=== PATIENT | male | born 1955 | race Asian ===

== ENCOUNTER 2020-09-18 13:52 | Inpatient (IN) | payer OTHER ==
[~2020-09-18] VITALS: Ht 165.1 cm; Wt 79.5 kg
[2020-09-18 14:48] LABS: BASOPHILS % (AUTO) 0.3 % (0.0-2.0); EOSINOPHILS % (AUTO) 0.8 % (1.0-6.0); HEMATOCRIT 47.5 % (41-53); HEMOGLOBIN 15.6 g/dL (13.5-17.5); LYMPHOCYTES # (AUTO) 2.9 K/uL (1.0-4.8); MEAN CORPUSCULAR HEMOGLOBIN 29.2 pg (26.0-34.0); MEAN CORPUSCULAR HGB CONC 32.9 G/dL (31.0-37.0); MEAN CORPUSCULAR VOLUME 89 fL (80-100); MONOCYTES # (AUTO) 0.8 K/uL (0.1-1.0); MONOCYTES % (AUTO) 9.1 % (2.0-9.0); NEUTROPHILS # (AUTO) 4.8 K/uL (1.8-7.7); NEUTROPHILS % (AUTO) 55.8 % (40.0-70.0); PLATELET COUNT (AUTO) 182 K/uL (150-450); RED BLOOD CELL COUNT(AUTO) 5.36 MIL/uL (4.50-5.90); RED CELL DISTRIBUTION WIDTH 13.5 % (11.5-14.5)
[2020-09-18 14:58] LABS: APPEARANCE,URINE CLEAR (CLEAR); BILIRUBIN,URINE NEGATIVE (NEGATIVE); GLUCOSE, URINE (UA) NEGATIVE (NEGATIVE); KETONES,URINE TRACE mg/dL (NEGATIVE); LEUKOCYTE ESTERASE ,URINE NEGATIVE (NEGATIVE); NITRATE,URINE NEGATIVE (NEGATIVE); OCCULT BLOOD,URINE SMALL (NEGATIVE); PH,URINE 6.5 (5.0-8.0); PROTEIN,URINE SEE CONFIRM (NEGATIVE); UROBILINOGEN,URINE 0.2 mg/dL (<=1.0)
[2020-09-18 15:01] LABS: ANION GAP 7 mmol/L (8-16); CALCIUM, TOTAL 9.5 mg/dL (8.8-10.5); CARBON DIOXIDE 29 mmol/L (22-29); CHLORIDE 101 mmol/L (98-107); CREATININE 0.94 mg/dL (0.60-1.30); GLOMERULAR FILTR. RATE CALC > 60 mL/min (>60); GLUCOSE,RANDOM 130 mg/dL (70-110); POTASSIUM 3.3 mmol/L (3.5-5.1); SODIUM SERUM 137 mmol/L (136-145); UREA NITROGEN, BLOOD 17 mg/dL (7-18)
[2020-09-18 15:02] LABS: PROTHROMBIN TIME 10.4 SEC (9.4-11.6)
[2020-09-18] MEDS: NITROPRUSSIDE SODIUM 50 MG in DEXTROSE 5%-WATER 248 ML IV PRN ×2 (15:02→21:32)
[2020-09-18 15:09] LABS: LACTIC ACID 1.3 mmol/L (0.4-2.0)
[2020-09-18 15:25] LABS: ALANINE AMINOTRANSFERASE 38 U/L (12-78); ALBUMIN 4.4 g/dL (3.4-5.0); ALKALINE PHOSPHATASE 58 U/L (46-116); ASPARTATE AMINOTRANSFERASE 34 U/L (15-37); BILIRUBIN,TOTAL 0.9 mg/dL (0.1-1.0); CREATINE KINASE, TOTAL ONLY 564 U/L (39-308)
[2020-09-18 15:34] LABS: SULFOSALICYLIC ACID,URINE 4+ (Negative)
[2020-09-18 15:37] LABS: BACTERIA,URINE None Seen /HPF (None Seen); RBC,URINE 0-2 /HPF (0-2); WBC,URINE None Seen /HPF (0-5)
[2020-09-18 15:39] LABS: SQUAMOUS EPITHELIAL CELL,UR None Seen /LPF (None Seen)
[2020-09-18] MEDS ORDERED: ASPIRIN 325 MG TABLET PO ONE (17:00)
[2020-09-18] MEDS ORDERED: IOHEXOL 350 MG/ML 100 ML VIAL ONE (18:06)
[2020-09-18] MEDS ORDERED: SODIUM CHLORIDE 0.9% 100 ML ONE (18:06)
[2020-09-18] MEDS ORDERED: ACETAMINOPHEN 325 MG TABLET PO PRN (18:15)
[2020-09-18] MEDS ORDERED: ONDANSETRON HCL 4 MG/2 ML VIAL IVP PRN (18:15)
[2020-09-18] MEDS ORDERED: MAGNESIUM HYDROXIDE SUSPENSION 30 ML UDCUP PO PRN (18:15)
[2020-09-18] MEDS: ATORVASTATIN CALCIUM 40 MG TABLET PO SCH (18:41)
[2020-09-18] MEDS: POTASSIUM CHL 10 MEQ/WATER 50 ML IV SCH ×2 (19:37→21:31)
[2020-09-18 20:15] VITALS: BP 227/118
[2020-09-18] MEDS: FAMOTIDINE 20 MG TABLET PO SCH (21:32)
[2020-09-18] MEDS: DOCUSATE SODIUM 100 MG CAPSULE PO SCH (21:32)
[2020-09-19] VITALS: BP 133/77
[2020-09-19] MEDS: HEPARIN SODIUM,PORCINE 5,000 UNITS/ML VIAL SQ SCH ×3 (00:08→16:45)
[2020-09-19] MEDS ORDERED: POTASSIUM CHLORIDE 20 MEQ ER TABLET PO PRN (03:45)
[2020-09-19] MEDS: POTASSIUM CHL 10 MEQ/WATER 50 ML IV PRN ×3 (03:52→06:23)
[2020-09-19 04:00] VITALS: BP 152/98
[2020-09-19 08:00] VITALS: BP 173/110
[2020-09-19] MEDS: ATORVASTATIN CALCIUM 40 MG TABLET PO SCH (08:26)
[2020-09-19] MEDS: DOCUSATE SODIUM 100 MG CAPSULE PO SCH ×2 (08:26→20:04)
[2020-09-19] MEDS: FAMOTIDINE 20 MG TABLET PO SCH ×2 (08:27→20:04)
[2020-09-19] MEDS ORDERED: ASPIRIN 325 MG TABLET PO SCH (09:00)
[2020-09-19] MEDS ORDERED: AmLODIPine BESYLATE 10 MG TABLET PO SCH (09:00)
[2020-09-19] MEDS: CloNIDine HCL 0.1 MG TABLET PO PRN ×2 (09:07→20:16)
[2020-09-19 10:58] LABS: AMPHET/METH SCREEN,URINE NEGATIVE (NEGATIVE); BARBITURATE SCREEN, URINE NEGATIVE (NEGATIVE); BENZODIAZEPINES SCREEN,URINE NEGATIVE (NEGATIVE); CANNABINOID SCREEN,URINE NEGATIVE (NEGATIVE); COCAINE SCREEN,URINE NEGATIVE (NEGATIVE); METHADONE SCREEN, URINE NEGATIVE (NEGATIVE); OPIATE SCREEN,URINE NEGATIVE (NEGATIVE); PHENCYCLIDINE SCREEN,URINE NEGATIVE (NEGATIVE)
[2020-09-19 12:00] VITALS: BP 178/79
[2020-09-19 16:00] VITALS: BP 125/53
[2020-09-19 18:17] LABS: COVID AG,FIA SOURCE NASAL SWAB
[2020-09-19 20:00] VITALS: BP 173/94
[2020-09-20] MEDS ORDERED: MULTIVITAMINS WITH MINERALS, THERAPEUTIC TABLET PO SCH (09:00)
== END 2020-09-19 21:00 | disposition short-term general hospital (02) | DRG 65 ==
LOC: EMS 13:57 → ICU 18:26
PROVIDERS: ADMIT Internal Medicine; ATTEND Internal Medicine
DX: I63.9 Cerebral infarction, unspecified (principal); I16.1 Hypertensive emergency; G81.91 Hemiplegia, unspecified affecting right dominant side; I10 Essential (primary) hypertension; R29.700 NIHSS score 0; E87.6 Hypokalemia; Z20.822 Contact with and (suspected) exposure to COVID-19
CPT/HCPCS: 70450; 70496; 70498; 70551; 71045; 80053; 80307; 81001; 81002; 82550; 83605; 84132; 84484; 85025; 85610; 85730; 87081; 92610; 93005; 93306; 97163; 99291; A9575; G0378; J1644; J3480; J3490; J7050; J7060; 36415-L1; 36415-TC